=== PATIENT | male | born 1985 | race Caucasian/White ===

== ENCOUNTER 2022-09-29 16:36 | Emergency (ER) | payer MEDICAID ==
[~2022-09-29] VITALS: Ht 167.6 cm; Wt 68.9 kg
[2022-09-29 16:41] VITALS: BP_SYST 163
[2022-09-29] MEDS ORDERED: NACL 0.9% 2,000 ML IV ONE (17:00)
[2022-09-29] MEDS ORDERED: LORazepam 2 MG/ML VIAL IVP ONE ×3 (17:00→21:15)
[2022-09-29 17:40] LABS: BASOPHILS # (AUTO) 0.1 K/uL (0.0-0.2); BASOPHILS % (AUTO) 1.3 % (0.0-2.0); HEMATOCRIT 42.6 % (36-54); HEMOGLOBIN 14.6 g/dL (14.0-18.0); LYMPHOCYTES # (AUTO) 0.5 K/uL (1.0-5.5); LYMPHOCYTES % (AUTO) 9.8 % (20.5-51.5); MEAN CORPUSCULAR HEMOGLOBIN 33 pg (27-31); MEAN CORPUSCULAR HGB CONC 34 % (32-36); MEAN CORPUSCULAR VOLUME 96 fL (79.0-98.0); MONOCYTES # (AUTO) 0.4 K/uL (0.0-1.0); MONOCYTES % (AUTO) 7.5 % (1.7-9.3); NEUTROPHILS % (AUTO) 81.4 % (40.0-70.0); RED BLOOD CELL COUNT(AUTO) 4.45 MIL/uL (4.2-6.2); RED CELL DISTRIBUTION WIDTH 13.2 % (9.0-15.0); WHITE BLOOD COUNT (AUTO) 4.9 K/uL (4.8-10.8)
[2022-09-29 17:53] LABS: PLATELET COUNT (AUTO) 77 K/uL (130-430)
[2022-09-29 18:06] LABS: ALANINE AMINOTRANSFERASE 65 U/L (12-78); ALBUMIN 4.7 g/dL (3.4-4.8); ANION GAP 25 (5-15); ASPARTATE AMINOTRANSFERASE 158 U/L (10-37); CALCIUM 9.3 mg/dL (8.4-11.0); CHLORIDE 95 mmol/L (98-107); CREATININE 0.84 mg/dL (0.55-1.30); GFR AFRICAN AMERICAN 131 mL/min (>90); GLUCOSE 200 mg/dL (70-99); LIPASE 63 U/L (73-393); TOTAL BILIRUBIN 1.8 mg/dL (0.0-1.0); UREA NITROGEN, BLOOD 5 mg/dL (8-21)
[2022-09-29 18:10] LABS: ALCOHOL, BLOOD < 3 mg/dL (<10)
[2022-09-29 18:16] LABS: ACETONE, SERUM NEGATIVE (NEGATIVE)
[2022-09-29] MEDS ORDERED: ONDANSETRON HCL 4 MG/2 ML VIAL IVP ONE (18:30)
[2022-09-29] MEDS ORDERED: FOLIC ACID 1 MG, THIAMINE HCL 100 MG, MAGNESIUM SULFATE 1 GM, MVI 10 ML in NACL 0.9% 1,... IV ONE (18:30)
[2022-09-29] MEDS ORDERED: POTASSIUM CHLORIDE 20 MEQ/PKT PACKET PO ONE (18:30)
[2022-09-29] MEDS ORDERED: KCL 20 mEq in 100 mL (PREMIX) 100 ML IV ONE (18:30)
[2022-09-29] MEDS ORDERED: MVI 10 ML VIAL IV ONE (18:51)
[2022-09-29] MEDS ORDERED: THIAMINE HCL 100 MG/ML VIAL ONE (18:51)
[2022-09-29] MEDS ORDERED: FOLIC ACID 5 MG/ML VIAL IV ONE (18:51)
[2022-09-29] MEDS ORDERED: MAGNESIUM SULFATE 1 GM/2 ML VIAL ONE (18:51)
[2022-09-29 19:37] LABS: BARBITURATE, URINE NEGATIVE (NEG <=200); BENZODIAZEPINE, URINE NEGATIVE (NEG <=150); CANNABINOID, URINE POSITIVE (NEG <=50); COCAINE, URINE NEGATIVE (NEG <=150); METHAMPHETAMINES SCREEN,URINE NEGATIVE (NEG <=500); OPIATE, URINE NEGATIVE (NEG <=100); PHENCYCLIDINE SCREEN,URINE NEGATIVE (NEG <=25); UR TRICYCLIC ANTIDEPRESSANTS NEGATIVE (NEG <=300); URINE AMPHETAMINE NEGATIVE (NEG <=500); URINE METHADONE NEGATIVE (NEG <=200); URINE OXYCODONE SCREEN NEGATIVE (NEG <=100); URINE PROPOXYPHENE SCREEN NEGATIVE (NEG <=300)
[2022-09-29] MEDS ORDERED: LIB25 PO (21:10)
[2022-09-29] MEDS ORDERED: ONDA-8 TL (21:10)
[2022-09-29] MEDS ORDERED: POTA8TAB66 PO (21:12)
[2022-09-29 21:22] VITALS: BP_SYST 140
== END 2022-09-29 21:22 | disposition home or self-care (01) ==
LOC: SED 16:36
DX: F10.231 Alcohol dependence with withdrawal delirium (principal); E87.6 Hypokalemia; R73.9 Hyperglycemia, unspecified; R74.01 Elevation of levels of liver transaminase levels; Z79.899 Other long term (current) drug therapy; Y90.6 Blood alcohol level of 120-199 mg/100 ml
CPT/HCPCS: 99285; 96365; 70450; 96375; 96366; 80307; 80053; 82009; 83690; 85025; 36415; 76376; 96368; 96376; 83605; G0482; J3490; J2060; J3475; J2405; J3480; J3411

== ENCOUNTER 2022-12-10 15:34 | Emergency (ER) | payer SELFPAY ==
[~2022-12-10] VITALS: Ht 175.3 cm; Wt 65.8 kg
[~2022-12-10 15:34] MED LIST: LIB25 PO; ONDA-8 TL; POTA8TAB66 PO
[2022-12-10 15:52] VITALS: BP_SYST 157; PULSE 88; RESP 16; TEMP 97.4; O2SAT 97
[2022-12-10] MEDS ORDERED: levETIRAcetam 1,000 MG in NS 90 ML IV ONE (16:30)
[2022-12-10 17:03] LABS: BASOPHILS % (AUTO) 0.9 % (0.0-2.0); EOSINOPHILS % (AUTO) 0.8 % (0.0-4.0); HEMATOCRIT 41.4 % (36-54); LYMPHOCYTES # (AUTO) 0.6 K/uL (1.0-5.5); LYMPHOCYTES % (AUTO) 15.8 % (20.5-51.5); MEAN CORPUSCULAR HEMOGLOBIN 32 pg (27-31); MEAN CORPUSCULAR HGB CONC 34 % (32-36); MEAN CORPUSCULAR VOLUME 95 fL (79.0-98.0); MONOCYTES # (AUTO) 0.5 K/uL (0.0-1.0); NEUTROPHILS # (AUTO) 2.7 K/uL (1.8-7.7); NEUTROPHILS % (AUTO) 70.5 % (40.0-70.0); RED BLOOD CELL COUNT(AUTO) 4.37 MIL/uL (4.2-6.2); WHITE BLOOD COUNT (AUTO) 3.9 K/uL (4.8-10.8)
[2022-12-10 17:06] LABS: CALCIUM 9.8 mg/dL (8.4-11.0); CREATININE 0.64 mg/dL (0.55-1.30); POTASSIUM 3.9 mmol/L (3.5-5.1)
[2022-12-10 17:21] LABS: ALBUMIN 4.4 g/dL (3.4-4.8); TOTAL BILIRUBIN 2.4 mg/dL (0.0-1.0); TOTAL PROTEIN, SERUM 8.2 g/dL (6.4-8.3)
[2022-12-10 17:22] LABS: PLATELET COUNT (AUTO) 64 K/uL (130-430)
[2022-12-10] MEDS ORDERED: LEVE500T9 PO (18:20)
[2022-12-10 18:28] VITALS: BP_SYST 132; PULSE 72; RESP 18; TEMP 97.4; O2SAT 98
== END 2022-12-10 18:28 | disposition home or self-care (01) ==
LOC: SED 15:34
DX: R56.9 Unspecified convulsions (principal); R51.9 Headache, unspecified; Z79.899 Other long term (current) drug therapy
CPT/HCPCS: 99284; 96365; 80053; 85025; 36415; 83605; J1953

== ENCOUNTER 2023-09-19 22:32 | Emergency (ER) | payer OTHER ==
[~2023-09-19] VITALS: Ht 175.3 cm; Wt 63.5 kg
[~2023-09-19 22:32] MED LIST changes: +CHLO25CA11 PO; +LEVE500T9 PO; -LIB25 PO
[2023-09-19 22:36] VITALS: BP_SYST 145; PULSE 101; RESP 23; TEMP 97.6; O2SAT 96
[2023-09-19] MEDS ORDERED: LEVE500T9 PO (23:11)
[2023-09-19 23:15] LABS: BASOPHILS % (AUTO) 1.2 % (0.0-2.0); EOSINOPHILS % (AUTO) 0.3 % (0.0-4.0); HEMATOCRIT 38.1 % (36-54); HEMOGLOBIN 13.3 g/dL (14.0-18.0); LYMPHOCYTES # (AUTO) 0.8 K/uL (1.0-5.5); LYMPHOCYTES % (AUTO) 25.6 % (20.5-51.5); MEAN CORPUSCULAR HEMOGLOBIN 33 pg (27-31); MEAN CORPUSCULAR HGB CONC 35 % (32-36); MEAN CORPUSCULAR VOLUME 94 fL (79.0-98.0); MONOCYTES # (AUTO) 0.4 K/uL (0.0-1.0); MONOCYTES % (AUTO) 12.3 % (1.7-9.3); NEUTROPHILS # (AUTO) 1.9 K/uL (1.8-7.7); NEUTROPHILS % (AUTO) 60.6 % (40.0-70.0); PLATELET COUNT (AUTO) 61 K/uL (130-430); RED BLOOD CELL COUNT(AUTO) 4.07 MIL/uL (4.2-6.2); WHITE BLOOD COUNT (AUTO) 3.2 K/uL (4.8-10.8)
[2023-09-19] MEDS: levETIRAcetam 1,000 MG IV BAG 100 ML IV ONE (23:27)
[2023-09-19 23:34] LABS: CALCIUM 9.6 mg/dL (8.4-11.0); CREATININE 0.94 mg/dL (0.55-1.30); POTASSIUM 3.4 mmol/L (3.5-5.1)
[2023-09-20 00:31] VITALS: BP_SYST 117; PULSE 83; RESP 18; TEMP 98; O2SAT 96
== END 2023-09-20 00:27 | disposition home or self-care (01) ==
LOC: SED 22:32
DX: G40.909 Epilepsy, unspecified, not intractable, without status epilepticus (principal); Z79.899 Other long term (current) drug therapy
CPT/HCPCS: 99284; 96365; 80048; 85025; 36415; J1953